=== PATIENT | male | born 1955 | race Caucasian/White ===

== ENCOUNTER 2016-07-02 11:02 | Emergency (ER) | payer MEDICARE ==
--- NOTE | 2016-07-02 15:13 | ED ---
Complex/Multi-Sys Presentation - HPI Summary HPI Summary: Patient presents with mild stomach upset for a year, and decreased appetite over the last three days. He is working with his PCP regarding these symptoms and has an appointment at 8:30 on Jul 17 for re-evaluation. He reports occasional episodes of diarrhea and nausea, with a 20 lb weight loss over the last few months. He ate Georgian fries which upset his stomach some. No fever, vomiting, constipation, weakness, dizziness, lightheadedness, urinary symptoms or N/T. He mentions that his PCP did a CT scan of his chest on 06/20 that was negative for acute findings, and that they had discussed getting a scan of his abdomen if his symptoms continued or worsened, but he has not been in touch with Dr. Amaya regarding this. He has had blood tinged sputum when coughing three weeks ago. - History Of Current Complaint Chief Complaint: EDGeneral Time Seen by Provider: 07/02/16 14:21 Hx Obtained From: Patient Onset/Duration: Gradual Onset - for one year with decreased appetite over 3 days. Timing: Intermittent, Lasting: - He is able to eat intermittently but his appetite is decreased Severity Currently: None Severity Initially: Moderate Associated Signs And Symptoms: Positive: Nausea, Diarrhea, Abdominal Pain, Decreased Oral Intake - Allergies/Home Medications Allergies/Adverse Reactions: Allergies Allergy/AdvReac Type Severity Reaction Status Date / Time ENVIRONMENTAL/SEASONAL HAYFER Allergy Difficulty Uncoded 06/20/16 10:11 Breathing PMH/Surg Hx/FS Hx/Imm Hx Endocrine/Hematology History: Denies: Hx Diabetes, Hx Thyroid Disease Cardiovascular History: Reports: Other Cardiovascular Problems/Disorders - TIA Denies: Hx Hypertension, Hx Pacemaker/ICD Respiratory History: Reports: Hx Asthma, Hx Chronic Obstructive Pulmonary Disease (COPD), Other Respiratory Problems/Disorders - CURRENT GI History: Denies: Hx Ulcer History: Reports: Other Problems/Disorders - bph Denies: Hx Renal Disease Musculoskeletal History: Reports: Hx Arthritis - BILATERAL HANDS AND KNEES, Hx Back Problems, Hx Tendonitis Sensory History: Reports: Hx Contacts or Glasses - GLASSES Denies: Hx Hearing Aid Opthamlomology History: Reports: Hx Contacts or Glasses - GLASSES Neurological History: Reports: Other Neuro Impairments/Disorders - PAIN CLINIC PT Psychiatric History: Denies: Hx Panic Disorder - Surgical History Surgery Procedure, Year, and Place: rt knee- 1996 rt groin hernia-1979 scrotal cyst Hx Anesthesia Reactions: No Infectious Disease History: No Infectious Disease History: Reports: Hx of Known/Suspected MRSA - SCALP, RIGHT LEG Denies: Hx Clostridium Difficile, Hx Hepatitis, Hx Human Immunodeficiency Virus (HIV), Hx Shingles, Hx Tuberculosis, Hx Known/Suspected VRE, Hx Known/ Suspected VRSA, History Other Infectious Disease, Traveled Outside the [place] in Last 30 Days - Family History Known Family History: Positive: Cardiac Disease, Hypertension - Social History Occupation: Disabled Lives: Alone Alcohol Use: None Substance Use Type: Reports: None Smoking Status (MU): Heavy Every Day Tobacco Smoker Type: Cigarettes Amount Used/How Often: 1-2 ppd Length of Time of Smoking/Using Tobacco: 30 years Have You Smoked in the Last Year: Yes Cessation Counseling: Patient Advised to Stop Review of Systems Negative: Fever Negative: Sore Throat, Ear Ache, Nasal Discharge Negative: Chest Pain Negative: Shortness Of Breath Positive: Abdominal Pain - mild diffuse, Diarrhea, Nausea. Negative: Vomiting Negative: no symptoms reported Negative: Myalgia, Edema Negative: Bruising Negative: Headache, Weakness, Paresthesia, Numbness All Other Systems Reviewed And Are Negative: Yes Physical Exam Triage Information Reviewed: Yes Vital Signs On Initial Exam: Initial Vitals Temp Pulse Resp BP Pulse Ox 98.2 F 82 20 122/70 95 07/02/16 11:07 07/02/16 11:07 07/02/16 11:07 07/02/16 11:07 07/02/16 11:07 Vital Signs Reviewed: Yes Appearance: Positive: Well-Appearing - Patient is appears clean and well kept, and is engaging and appropriate. He asks for coffee when he is placed in the room and accepts a turkey sandwich, jie colette and coffee., No Pain Distress, Well-Nourished Skin: Positive: Warm, Skin Color Reflects Adequate Perfusion, Dry Head/Face: Positive: Normal Head/Face Inspection Eyes: Positive: EOMI, RENEE, Conjunctiva Clear ENT: Positive: Hearing grossly normal Dental: Positive: Gross Decay/Caries @ - poor dentition observed Neck: Positive: Supple, Nontender, No Lymphadenopathy Respiratory/Lung Sounds: Positive: Clear to Auscultation, Breath Sounds Present Cardiovascular: Positive: RRR Abdomen Description: Positive: Soft. Negative: Nontender - mild diffuse tenderness, CVA Tenderness (R), CVA Tenderness (L), Distended, Guarding, Hepatomegaly, Peritoneal Signs, Pulsatile Mass, Splenomegaly Bowel Sounds: Positive: Present Musculoskeletal: Negative: Edema Left, Edema Right Neurological: Positive: Sensory/Motor Intact, Alert, Oriented to Person Place, Time - Patient is alert and oriented x 3, NV Bundle Intact Distally, Normal Gait Psychiatric: Positive: Affect/Mood Appropriate AVPU Assessment: Alert Diagnostics - Vital Signs Vital Signs Temp Pulse Resp BP Pulse Ox 07/02/16 14:09 97.1 F 86 16 114/70 99 07/02/16 13:10 98.6 F 84 16 122/76 96 07/02/16 11:56 98.9 F 90 16 111/86 96 07/02/16 11:07 98.2 F 82 20 122/70 95 - Laboratory Lab Statement: Any lab studies that have been ordered have been reviewed, and results considered in the medical decision making process. Complex Multi-Symp Course/Dx Course Of Treatment: I spoke with Dr. Amaya, who is aware of the patient's condition and has actively been working with the patient. An appointment is scheduled for Jul 17, 2016 for re-evaluation and Dr. Amaya left instructions for the patient to contact him if his symptoms changed, because he would then order a CT scan of the patient's abdomen. I offered to have the CT performed today, but Dr. Amaya said he would have his nurse call the patient today to set up the outpatient test and follow up. The patient was in agreement with this plan. Discharge was written for the patient, but his daughter called wondering why her father was not getting a scan in the ED today. I explained the plan with Dr. Amaya, and the daughter insisted that this was an "unsafe discharge". I explained the chronic nature of her father's complaint and that he was actively under Dr. Amaya's care. I let her know he was AOx3, with stable vitals and presentation, and had eaten and had liquids without nausea or abdominal pain. I also explained the plan of care and discussion with Dr. Amaya. She was not satisfied with my answers, but agreed to speak with Dr. Amaya regarding her concerns. - Diagnoses Differential Diagnoses/HQI/PQRI: Metabolic Abnormality, Urinary Tract Infection , Other Provider Diagnoses: DECREASED APPETITE - Physician Notifications Discussed Care Of Patient With: Dr. Amaya, patient's PCP; Dr. Torre, emergency department attending. Discharge - Discharge Plan Condition: Stable Disposition: HOME Referrals: Pablito Amaya MD [Primary Care Provider] - Additional Instructions: I spoke with Dr. Amaya, who is expecting you for your appointment on Jul 17 at 8: 30. One of his nurse's will call you to let your know when the CT scan of your stomach will be order. Continue trying to eat what food you can and call Dr. Amaya if you have questions. Return to the emergency department if your symptoms worsen.
[2016-07-02 16:05] VITALS: BP 124/78
== END 2016-07-02 16:03 | disposition home or self-care (01) ==
LOC: ED 11:02
DX: R63.0 Anorexia (principal); R11.0 Nausea; R19.7 Diarrhea, unspecified; F17.210 Nicotine dependence, cigarettes, uncomplicated
CPT/HCPCS: 99282

== ENCOUNTER 2018-05-12 08:39 | Emergency (ER) | payer MEDICARE ==
[2018-05-12 09:12] VITALS: BP 121/78
--- NOTE | 2018-05-12 09:32 | UC ---
Cardiac HPI - HPI Summary HPI Summary: 62-year-old male comes to clinic today with a chief complaint of sputum production cough shortness of breath and splinting left upper chest pain. No for 5 days ago patient was trying to clear some sputum and during coughing attack he got sudden onset of left upper chest pain. Pain is worse with cough it's better with shallow respirations. He is a smoker any always make some sputum but the sputum has more color to it now. No fevers. He's had to use his inhaler on a regular basis when he normally only uses it when necessary. The inhaler does help with the shortness of breath. He's had a heart attack in the past and he states this pain does not feel like a heart attack. No edema. - History of Current Complaint Chief Complaint: UCChestPain Stated Complaint: COUGH Time Seen by Provider: 05/12/18 09:13 Pain Intensity: 2 - Allergy/Home Medications Allergies/Adverse Reactions: Allergies Allergy/AdvReac Type Severity Reaction Status Date / Time ENVIRONMENTAL/SEASONAL HAYFER Allergy Difficulty Uncoded 05/12/18 09:12 Breathing Home Medications: Home Medications Albuterol HFA INHALER* [Ventolin HFA Inhaler*] 2 puff INH Q6HR PRN 05/12/18 [ History Confirmed 05/12/18] Aspirin EC TAB* [Ecotrin EC Low Dose 81 MG*] 81 mg PO DAILY 05/12/18 [History Confirmed 05/12/18] Atorvastatin* [Lipitor*] 80 mg PO DAILY 05/12/18 [History Confirmed 05/12/18] Budesonide/Formote 160/4.5(NF) [Symbicort 160/4.5 (NF)] 2 puff INH BID 05/12/18 [History Confirmed 05/12/18] Clopidogrel TAB* [Plavix TAB*] 75 mg PO DAILY 05/12/18 [History Confirmed ] Losartan TAB* [Cozaar TAB*] 12.5 mg PO DAILY 05/12/18 [History Confirmed ] Metoprolol Tartrate TAB* [Lopressor TAB*] 12.5 mg PO DAILY 05/12/18 [History Confirmed 05/12/18] Nitroglycerin TAB 0.4 MG* 0.4 mg SL . NEEDED PRN 05/12/18 [History Confirmed 05/12/18] Tamsulosin CAP* [Flomax CAP*] 0.4 mg PO BID 05/12/18 [History Confirmed 05/12/18 ] PMH/Surg Hx/FS Hx/Imm Hx Cardiovascular History: Myocardial Infarction Respiratory History: COPD - Surgical History Surgical History: Yes Surgery Procedure, Year, and Place: rt knee- 1996 rt groin hernia-1979 scrotal cyst. Cardiac stents 12/2017 - Family History Known Family History: Positive: Cardiac Disease, Hypertension - Social History Alcohol Use: None Substance Use Type: None Smoking Status (MU): Heavy Every Day Tobacco Smoker Type: Cigarettes Amount Used/How Often: 1-2 ppd Length of Time of Smoking/Using Tobacco: 30 years Have You Smoked in the Last Year: Yes Review of Systems All Other Systems Reviewed And Are Negative: Yes Constitutional: Positive: Negative Skin: Positive: Negative Eyes: Positive: Negative ENT: Positive: Negative Respiratory: Positive: Shortness Of Breath, Cough Cardiovascular: Positive: Chest Pain Gastrointestinal: Positive: Negative Motor: Positive: Negative Neurovascular: Positive: Negative Musculoskeletal: Positive: Negative Neurological: Positive: Negative Psychological: Positive: Negative Is Patient Immunocompromised?: No Physical Exam Triage Information Reviewed: Yes Appearance: No Pain Distress, Well-Nourished, Ill-Appearing - MILD Vital Signs: Initial Vital Signs Temp 98.1 F 05/12/18 08:59 Pulse 71 05/12/18 08:59 Resp 16 05/12/18 08:59 BP 121/78 05/12/18 08:59 Pulse Ox 100 05/12/18 08:59 Vital Signs Reviewed: Yes Eye Exam: Normal Eyes: Positive: Conjunctiva Clear ENT: Positive: Pharynx normal. Negative: Nasal drainage Neck exam: Normal Neck: Positive: Supple Respiratory: Positive: No respiratory distress, Rhonchi Cardiovascular: Positive: RRR Musculoskeletal Exam: Normal Musculoskeletal: Positive: Strength Intact, ROM Intact, No Edema Neurological Exam: Normal Neurological: Positive: Alert, Muscle Tone Normal Psychological Exam: Normal Psychological: Positive: Age Appropriate Behavior Skin Exam: Normal - Assessment/Plan Course Of Treatment: Order Information: CHEST PA LAT 2 VWS. Accession Number: [id number]. CPT: 94287. INDICATION: 3 days cough and chest pain. History of COPD and coronary artery disease with. previous myocardial infarction in December 2017. COMPARISON: July 04, [address] and June 20, [address] TECHNIQUE: Dual energy PA and routine lateral views of the chest were obtained. REPORT: Severely elevated lung volumes and rarefaction of the interstitial markings. corresponding with advanced emphysema on prior CT. No focal pulmonary lesion, compelling. alveolar consolidation, pleural effusion, pneumothorax. The heart, pulmonary vasculature,. and mediastinal contours are unremarkable. IMPRESSION: #. Stigmata of obstructive lung disease. No acute pulmonary or cardiac process evident. . <Electronically signed by Negro Mcginnis MD in OV> 05/12 [id number]. I discussed the x-ray report with the patient. We will treat with azithromycin and prednisone for bronchitis with COPD exacerbation. The chest the pain is splinting and associated with cough. He denies any concern of a heart attack and says this is a different pain than his heart pain in the past. The emergency department with any concerns of cardiac problems and he agreed. Last follow-up with primary care doctor reevaluation sooner if worse go the emergency department if he has any chest pain. - Clinical Impression Provider Diagnosis: Bronchitis, COPD (chronic obstructive pulmonary disease), Chest pain Discharge - Sign-Out/Discharge Documenting (check all that apply): Patient Departure All imaging exams completed and their final reports reviewed: Yes - Discharge Plan Condition: Stable Disposition: HOME Prescriptions: Azithromyxin AURELIO (NF) [Z-Aurelio (Zithromax) 250 mg tabs #6] 2 tab PO .TODAY, THEN 1 DAILY #6 tab predniSONE TAB* [Deltasone 20 MG TAB*] 40 mg PO DAILY #10 tab Patient Education Materials: Chest Pain (ED), Acute Bronchitis (ED), COPD ( Chronic Obstructive Pulmonary Disease) (ED) Referrals: Pablito Amaya MD [Primary Care Provider] - Additional Instructions: FOLLOW UP WITH YOUR DOCTOR. GO TO THE EMERGENCY DEPARTMENT FOR ANY WORSENING OF YOUR CONDITION; CHEST PAIN, FEVER, SHORTNESS OF BREATH, YOU FEEL ILL OR QUESTIONS OR CONCERNS. - Billing Disposition and Condition Condition: STABLE Disposition: Home
== END 2018-05-12 10:16 | disposition home or self-care (01) ==
LOC: UCCORT 08:39
DX: J44.9 Chronic obstructive pulmonary disease, unspecified (principal); J40 Bronchitis, not specified as acute or chronic; R07.9 Chest pain, unspecified; F17.210 Nicotine dependence, cigarettes, uncomplicated; I25.2 Old myocardial infarction
CPT/HCPCS: 71046; 93005; 99212; G0463

== ENCOUNTER 2018-05-27 10:13 | Emergency (ER) | payer MEDICARE ==
[2018-05-27 10:25] VITALS: BP 108/62
[2018-05-27] MEDS: Albuterol/Ipratropium NEB.SOL* Albuterol 2.5 MG/Ipratropium 0.5 MG 3 ML INH ONE (11:15)
--- NOTE | 2018-05-27 11:16 | UC ---
Respiratory Complaint HPI - HPI Summary HPI Summary: Patient presents to urgent care stating he was evaluated approximately 10 days ago. Patient states he was given antibiotic as well as prednisone. Patient states he started to improve over last 48 hours feels like is getting worse again. Patient with coarse cough with yellow sputum. Patient does use nebulizer with improvement. Patient denies fevers or chills. Patient has not taken anything for pain or cough. Patient is on Plavix status post a cardiac stent. Patient denies shortness of breath except for when he has "coughing fits "patient is unable to see his PCP due to financial constraints. Patient wanted to be rechecked because he feels like he is getting worse after getting better. Patient does smoke a pack every 2-3 days. Patient states he does use nicotine patch. Patient's medications reviewed this visit. - History of Current Complaint Chief Complaint: UCRespiratory Stated Complaint: COUGH, AND CHEST CONGESTION Time Seen by Provider: 05/27/18 10:59 Hx Obtained From: Patient Pain Intensity: 5 - Allergies/Home Medications Allergies/Adverse Reactions: Allergies Allergy/AdvReac Type Severity Reaction Status Date / Time ENVIRONMENTAL/SEASONAL HAYFER Allergy Difficulty Uncoded 05/27/18 10:25 Breathing Home Medications: Home Medications Albuterol 0.5% CONC NEB.JELLY* [Albuterol 0.5ol*] 1 mg .SEE ORDER Q4H PRN [History Confirmed 05/27/18] Nicotine PATCH 21 MG/24 HR* 21 mg TRANSDERM DAILY 05/27/18 [History Confirmed ] PMH/Surg Hx/FS Hx/Imm Hx Endocrine History: Dyslipidemia Cardiovascular History: Cardiac Disease, Hypertension, Myocardial Infarction Respiratory History: COPD, Pneumonia - Surgical History Surgical History: Yes Surgery Procedure, Year, and Place: rt knee- 1996 rt groin hernia-1979 scrotal cyst. Cardiac stents 12/2017 - Family History Known Family History: Positive: Cardiac Disease, Hypertension - Social History Occupation: Disabled Alcohol Use: None Substance Use Type: None Smoking Status (MU): Heavy Every Day Tobacco Smoker Type: Cigarettes Amount Used/How Often: 1-2 ppd Length of Time of Smoking/Using Tobacco: 30 years Have You Smoked in the Last Year: Yes When Did the Patient Quit Smoking/Using Tobacco: using a patch also Review of Systems All Other Systems Reviewed And Are Negative: Yes Respiratory: Positive: Shortness Of Breath, Cough Physical Exam Vital Signs: Initial Vital Signs Temp 98.6 F 05/27/18 10:22 Pulse 66 05/27/18 10:22 Resp 16 05/27/18 10:22 BP 108/62 05/27/18 10:22 Pulse Ox 100 05/27/18 10:22 Diagnostic Evaluation - Laboratory O2 Sat by Pulse Oximetry: 100 - Radiology Radiology Interpretation Completed By: Radiologist - Patient Name: SIVA YANES Medical Record#: [id number] Re-Evaluation - Re-Evaluation Second Eval Comment: reviewed CXR with ptDavid hydrate. pred. doxycycline. referral to [facility] Respiratory Course/Dx - Differential Dx/Diagnosis Provider Diagnosis: COPD (chronic obstructive pulmonary disease), Acute bronchitis Discharge - Sign-Out/Discharge Documenting (check all that apply): Patient Departure All imaging exams completed and their final reports reviewed: Yes - Discharge Plan Condition: Stable Disposition: HOME Prescriptions: DOXYcycline CAP(*) [DOXYcycline 100MG CAP(*)] 100 mg PO BID #20 cap predniSONE TAB* [Deltasone 20 MG TAB*] 20 mg PO DAILY #13 tab Patient Education Materials: Acute Bronchitis (ED), COPD (Chronic Obstructive Pulmonary Disease) (ED) Referrals: [facility] [Outside] Pablito Amaya MD [Primary Care Provider] - Additional Instructions: - Take antibiotics exactly as prescribed until gone - Use your nebulizer every 4 hours for the next 2 days - then as needed - Stay well hydrated - avoid excess caffeine and all alcohol - eat regular, healthy meals - - humidify the air in the room where you sleep - boil water, run a hot steam shower, vaporizer, cups of water by heat register - Take prednisone as prescribed until gone -- These infections are spread by secretions - do NOT share eating or drinking utensils - clean items you share with other people such as cell phones, computer mouse, TV remote, computer tablets,etc.. Once you have been antibiotics for 2 days, change your toothbrush and your pillowcase. -Contact your doctor to arrange a follow-up appointment this week. Call your doctor, return here or go to the emergency department with any questions or concerns - Billing Disposition and Condition Condition: STABLE Disposition: Home
== END 2018-05-27 12:08 | disposition home or self-care (01) ==
LOC: UCEAST 10:13
DX: J44.9 Chronic obstructive pulmonary disease, unspecified (principal); J20.9 Acute bronchitis, unspecified; I10 Essential (primary) hypertension; F17.210 Nicotine dependence, cigarettes, uncomplicated
CPT/HCPCS: 71046; 99212; A9270-GY; G0463

== ENCOUNTER 2019-05-29 08:48 | Emergency (ER) | payer MEDICARE ==
[2019-05-29 09:01] VITALS: BP 107/63
--- NOTE | 2019-05-29 09:27 | UC ---
Respiratory Complaint HPI - HPI Summary HPI Summary: Cough w/ pleuritic chest pain. Feels he is bringing up more mucous than normal. pt states he has not been feeling well for 2 days. he is from [place] and does not have a PCP. Reports going to urgent cares to get his COPD MANAGED. - History of Current Complaint Chief Complaint: UCRespiratory Stated Complaint: COUGH CHEST CONGESTION Time Seen by Provider: 05/29/19 08:50 Hx Obtained From: Patient Pain Intensity: 5 Pain Scale Used: 0-10 Numeric - Allergies/Home Medications Allergies/Adverse Reactions: Allergies Allergy/AdvReac Type Severity Reaction Status Date / Time ENVIRONMENTAL/SEASONAL HAYFER Allergy Difficulty Uncoded 05/29/19 09:01 Breathing Home Medications: Home Medications Bisoprolol TAB* [Zebeta TAB*] 2.5 mg PO DAILY 05/29/19 [History Confirmed ] Citalopram TAB* [CeleXA TAB*] 10 mg PO DAILY 05/29/19 [History Confirmed ] Doxepin (NF) 25 mg PO BEDTIME 05/29/19 [History Confirmed 05/29/19] Famotidine [Heartburn Prevention] 20 mg PO DAILY 05/29/19 [History Confirmed ] Fluticasone/Umeclidin/Vilanter [Trelegy Ellipta 100-62.5-25] 1 each IH DAILY [History Confirmed 05/29/19] PMH/Surg Hx/FS Hx/Imm Hx Previously Healthy: Yes Respiratory History: COPD - Surgical History Surgical History: Yes Surgery Procedure, Year, and Place: rt knee- 1996 rt groin hernia-1979 scrotal cyst. Cardiac stents 12/2017 - Family History Known Family History: Positive: Cardiac Disease, Hypertension - Social History Alcohol Use: None Substance Use Type: None Smoking Status (MU): Light Every Day Tobacco Smoker Type: Cigarettes Amount Used/How Often: 1-2 ppd Length of Time of Smoking/Using Tobacco: 30 years Have You Smoked in the Last Year: Yes When Did the Patient Quit Smoking/Using Tobacco: using a patch also Review of Systems All Other Systems Reviewed And Are Negative: Yes Constitutional: Negative: Fever, Chills, Fatigue Skin: Negative: Rash Respiratory: Positive: Cough. Negative: Shortness Of Breath Cardiovascular: Positive: Chest Pain - PLEURITIC Neurological: Negative: Headache Physical Exam Triage Information Reviewed: Yes Appearance: Well-Appearing Vital Signs: Initial Vital Signs Temp 99.4 F 05/29/19 08:53 Pulse 76 05/29/19 08:53 Resp 18 05/29/19 08:53 BP 107/63 05/29/19 08:53 Pulse Ox 97 05/29/19 08:53 Vital Signs Reviewed: Yes ENT: Positive: Pharynx normal, TMs normal, Uvula midline Respiratory: Positive: Lungs clear, No respiratory distress, Other: - coughing during inspiration.. Negative: Crackles, Rhonchi, Stridor, Wheezing Cardiovascular Exam: Normal Neurological: Positive: Alert, Other: - normal speech Skin: Negative: Rashes Respiratory Course/Dx - Course Course Of Treatment: VERY MILD COPD exacerbation w/ good O2 and good lung sounds. Offered CXR but pt just wanted a refill of his daily inhaler which we did. Unclear if insurance will be barrier. Gave steroid and advised to get pcp to help manage his chronic illness. - Differential Dx/Diagnosis Differential Diagnosis/HQI/PQRI: CHF, Exacerbation Of COPD, Other Provider Diagnosis: COPD exacerbation Discharge ED - Sign-Out/Discharge Documenting (check all that apply): Patient Departure All imaging exams completed and their final reports reviewed: No Studies - Discharge Plan Condition: Good Disposition: HOME Prescriptions: Fluticasone/Umeclidin/Vilanter [Trelegy Ellipta 100-62.5-25] 1 aer IN DAILY 30 Days #1 aer predniSONE [Prednisone 20 MG TAB] 20 mg PO BID 5 Days #10 tablet Patient Education Materials: COPD (Chronic Obstructive Pulmonary Disease) (ED) Referrals: No Primary Care Phys,NOPCP [Primary Care Provider] - Additional Instructions: If worsening please go to the emergency room. - Billing Disposition and Condition Condition: GOOD Disposition: Home
== END 2019-05-29 09:32 | disposition home or self-care (01) ==
LOC: UCEAST 08:48
DX: J44.1 Chronic obstructive pulmonary disease with (acute) exacerbation (principal); F17.210 Nicotine dependence, cigarettes, uncomplicated; Z79.51 Long term (current) use of inhaled steroids; Z91.09 Other allergy status, other than to drugs and biological substances
CPT/HCPCS: 99212; G0463

== ENCOUNTER 2023-01-08 05:19 | Observation (INO) ==
[2023-01-08 06:00] LABS: Hematocrit 39.2 % (38-53); Hemoglobin 13.5 g/dL (13.2-16.3); Mean Corpuscular Hgb Conc 34.5 g/dL (31-36); Mean Corpuscular Volume 92.6 fL (80-97); Mean Platelet Volume 6.8 fL (7.5-11.2); Platelet Count 210 10^3/uL (150-450); Red Blood Count 4.23 10^6/uL (4.06-5.63); Red Cell Distribution Width 17.3 % (12-17); White Blood Count 14.4 10^3/uL (3.6-10.2)
[2023-01-08 06:18] LABS: Albumin 4.2 g/dL (3.2-5.2); Albumin/Globulin Ratio 1.6 (1-3); C Reactive Protein 1.05 mg/L (<8.01); Calcium 10.2 mg/dL (8.6-10.3); Creatinine, Serum 1.18 mg/dL (0.67-1.17); Globulin 2.6 g/dL (2-4); Total Bilirubin 0.5 mg/dL (0.2-1.0); Total Protein 6.8 g/dL (6.4-8.9); eGFR CKD-EPI 67.6 (>60)
[2023-01-08 06:55] LABS: ABS Eosinophils 0.1 10^3/uL (0.0-0.5); ABS Lymphocytes 0.2 10^3/uL (1.0-4.8); ABS Monocytes 0.4 10^3/uL (0.0-1.1); ABS Neutrophils 13.7 10^3/uL (1.5-7.6); ABS Nucleated RBC 0.01 10^3/ul; Eosinophil % 0.4 %; Lymphocyte % 1.4 %
[2023-01-08 06:57] LABS: INR 1.16 (0.88-1.18)
[2023-01-08] MEDS ORDERED: Lactated Ringers 1000 ml BAG 1,000 ML IV ONE (07:44)
[2023-01-08 07:51] LABS: High Sensitivity Troponin 1 Hr 4 pg/mL (<20)
[2023-01-08 09:33] LABS: Erythrocyte Sed Rate 22 mm/Hr (0-19)
[2023-01-08 11:46] LABS: Magnesium 2.5 mg/dL (1.9-2.7)
[2023-01-08] MEDS ORDERED: Albuterol 2.5mg/3 ml (0.083%) NEB.SOLN INH PRN (12:01)
[2023-01-08] MEDS ORDERED: cefTRIAXone 1 gm/50 mL D5W 1 GM/50 ML BAG IV SCH (12:30)
[2023-01-08] MEDS: Albuterol/Ipratropium NEB.SOL (2.5/0.5 MG) 3 ML NEB.SOLN INH SCH ×2 (15:12→20:02)
[2023-01-08] MEDS: Enoxaparin 40 MG/0.4 ML SYR SUBCUT SCH (16:05)
[2023-01-08] MEDS: Nicotine PATCH 14 MG/24 HR PATCH TRANSDERM SCH (20:52)
[2023-01-08 21:47] LABS: Urine Appearance Cloudy; Urine Bilirubin Negative (Negative); Urine Blood Negative (Negative); Urine Color Yellow; Urine Glucose Negative (Negative); Urine Ketones Negative (Negative); Urine Nitrite Positive (Negative); Urine Protein Negative (Negative); Urine Specific Gravity 1.018 (1.002-1.030); Urine Urobilinogen Negative (Negative)
[2023-01-08 21:51] LABS: Urine Bacteria Absent (Absent); Urine Red Blood Cell 3+(>10/hpf) (Absent); Urine White Blood Cell 3+(>20/hpf) (Absent); Urine Yeast Present (Absent)
[2023-01-09 05:58] LABS: ABS Lymphocytes 0.7 10^3/uL (1.0-4.8); ABS Monocytes 0.9 10^3/uL (0.0-1.1); ABS Neutrophils 9.8 10^3/uL (1.5-7.6); Hemoglobin 11.5 g/dL (13.2-16.3); Lymphocyte % 6.1 %; Mean Corpuscular Hemoglobin 31.5 pg (27-33); Mean Corpuscular Hgb Conc 33.9 g/dL (31-36); Mean Corpuscular Volume 92.8 fL (80-97); Mean Platelet Volume 6.8 fL (7.5-11.2); Platelet Count 191 10^3/uL (150-450); Red Blood Count 3.67 10^6/uL (4.06-5.63); Red Cell Distribution Width 17.5 % (12-17); White Blood Count 11.4 10^3/uL (3.6-10.2)
[2023-01-09 06:22] LABS: Calcium 8.9 mg/dL (8.6-10.3); Creatinine, Serum 0.62 mg/dL (0.67-1.17); Magnesium 2.4 mg/dL (1.9-2.7); Potassium 4.3 mmol/L (3.5-5.0); eGFR CKD-EPI 104.8 (>60)
[2023-01-09] MEDS: Albuterol/Ipratropium NEB.SOL (2.5/0.5 MG) 3 ML NEB.SOLN INH SCH ×4 (06:59→19:27)
[2023-01-09] MEDS: Nicotine PATCH 14 MG/24 HR PATCH TRANSDERM SCH (08:36)
[2023-01-09] MEDS: Aspirin EC 81 mg TAB.EC (enteric coated) PO SCH (08:38)
[2023-01-09] MEDS: CMCS: Roflumilast 500 mcg TAB (NF) PO SCH (08:40)
[2023-01-09] MEDS ORDERED: cefTRIAXone 1 gm/50 mL D5W 1 GM/50 ML BAG IV SCH (12:30)
[2023-01-09] MEDS: Enoxaparin 40 MG/0.4 ML SYR SUBCUT SCH (13:09)
[2023-01-09] MEDS: oxyCODONE/Acetamin 5/325 mg TAB PO PRN (18:19)
[2023-01-09] MEDS ORDERED: Cefepime 1 GM in Dextrose 1 GM/50 ML BAG IV SCH (20:00)
[2023-01-09] MEDS: CEFEPIME 2 GM in Dextrose 50 mL IV SCH (21:11)
[2023-01-10] MEDS: CEFEPIME 2 GM in Dextrose 50 mL IV SCH ×2 (04:21→13:22)
[2023-01-10 07:05] LABS: ABS Eosinophils 0.1 10^3/uL (0.0-0.5); ABS Lymphocytes 1.1 10^3/uL (1.0-4.8); ABS Monocytes 1.2 10^3/uL (0.0-1.1); ABS Neutrophils 9.3 10^3/uL (1.5-7.6); ABS Nucleated RBC 0.01 10^3/ul; Eosinophil % 0.6 %; Hematocrit 33.4 % (38-53); Hemoglobin 11.5 g/dL (13.2-16.3); Lymphocyte % 9.1 %; Mean Corpuscular Hemoglobin 31.9 pg (27-33); Mean Corpuscular Hgb Conc 34.5 g/dL (31-36); Mean Corpuscular Volume 92.7 fL (80-97); Mean Platelet Volume 6.9 fL (7.5-11.2); Nucleated Red Blood Cells % 0.1 /100 WBC (0.0-0.4); Platelet Count 169 10^3/uL (150-450); Red Blood Count 3.61 10^6/uL (4.06-5.63); Red Cell Distribution Width 16.8 % (12-17); White Blood Count 11.7 10^3/uL (3.6-10.2)
[2023-01-10] MEDS: Albuterol/Ipratropium NEB.SOL (2.5/0.5 MG) 3 ML NEB.SOLN INH SCH ×3 (07:11→15:19)
[2023-01-10 07:19] LABS: Calcium 8.7 mg/dL (8.6-10.3); Creatinine, Serum 0.66 mg/dL (0.67-1.17); Potassium 3.5 mmol/L (3.5-5.0); eGFR CKD-EPI 102.8 (>60)
[2023-01-10] MEDS: CMCS: Roflumilast 500 mcg TAB (NF) PO SCH (09:07)
[2023-01-10] MEDS: Aspirin EC 81 mg TAB.EC (enteric coated) PO SCH (09:15)
[2023-01-10] MEDS: oxyCODONE/Acetamin 5/325 mg TAB PO PRN (09:15)
[2023-01-10] MEDS: Nicotine PATCH 14 MG/24 HR PATCH TRANSDERM SCH (09:17)
[2023-01-10] MEDS: Enoxaparin 40 MG/0.4 ML SYR SUBCUT SCH (13:24)
[2023-01-10 19:04] VITALS: BP 98/60
== END 2023-01-10 17:05 | disposition home or self-care (01) ==
LOC: EDHOLD 05:19 → ED 05:19 → EDHOLD 14:19 → MEDTELE 14:35
PROVIDERS: ADMIT Student in an Organized Health Care Education/Training Program; ATTEND Student in an Organized Health Care Education/Training Program